=== PATIENT | female | born 2000 | race American Indian/Alaskan Native ===

== ENCOUNTER 2022-07-05 01:16 | Emergency (ER) | payer BC ==
[~2022-07-05] VITALS: Ht 160 cm; Wt 61.2 kg
[2022-07-05] MEDS ORDERED: KETO10TA2 PO (04:29)
== END 2022-07-05 04:53 ==
LOC: ER 01:16
DX: S02.2XXA Fracture of nasal bones, initial encounter for closed fracture (principal); W01.0XXA Fall on same level from slipping, tripping and stumbling without subsequent striking against object, initial encounter; Y93.89 Activity, other specified; Y92.89 Other specified places as the place of occurrence of the external cause